=== PATIENT | male | born 1990 ===

== ENCOUNTER → 2023-05-15 10:56 | Outpatient (BNVA) | payer SELFPAY | PROVIDERS: Referring Provider Nurse Practitioner Family; Visit Provider Student in an Organized Health Care Education/Training Program | DX: M65.322 Trigger finger, left index finger; M65.332 Trigger finger, left middle finger | CPT/HCPCS: 73130 ==

== ENCOUNTER 2023-05-22 10:15 | Outpatient (CLI) | payer SELFPAY ==
[2023-05-22 11:12] LABS: Basophils # 0.1 10^3/uL (0.0-0.1); Basophils % 0.9 %; Eosinophils # 0.1 10^3/uL (0.0-0.8); Eosinophils % 2.2 %; Hematocrit 43.7 % (37-53); Lymphocytes # 1.5 10^3/uL (0.8-4.8); Lymphocytes % 22.5 %; Mean Corpuscular HGB Conc 35.2 g/dL (30-55); Mean Corpuscular Volume 90.9 fl (82-101); Mean Platelet Volume 9.6 fL (7.4-10.4); Monocytes # 0.6 10^3/uL (0.2-0.9); Monocytes % 9.4 %; Neutrophils # 4.21 10^3/uL (1.8-7.7); Neutrophils % 64.7 %; Nucleated Red Blood Cells % 0 %; Platelet Count 203 10^3/cmm (157-399); Red Blood Count 4.81 10^6/uL (3.85-5.65); Red Cell Distribution Width 12.8 % (12.1-15.1)
[2023-05-22 11:15] LABS: Erythrocyte Sedimentation Rate < 1 mm/hr (0-10)
[2023-05-22 11:34] LABS: Alanine Aminotransferase 41 U/L (0-41); Albumin Level 4.1 g/dL (3.5-5.2); Alkaline Phosphatase 54 U/L (40-130); Aspartate Amino Transferase 23 U/L (0-40); Blood Urea Nitrogen 11 mg/dL (6-20); C Reactive Protein 4.4 mg/L (0.0-4.9); Calcium 8.9 mg/dL (8.5-10.5); Carbon Dioxide 24 mmol/L (22-29); Chloride 100 mmol/L (98-107); Globulin 2.6 g/dL (1.3-4.6); Glomerular Filtration Rate 129.1 mL/min (90-130); Glucose 83 mg/dL (65-115); Osmolality Calculated 279 mOsm/kg (285-295); Sodium 135 mmol/L (136-145); Total Bilirubin 0.6 mg/dL (0.15-1.2); Total Protein 6.7 g/dL (6.6-8.7); Uric Acid 4.8 mg/dL (3.4-7.0)
[2023-05-22 11:59] LABS: Anion Gap 15.4 (5-19); Potassium 4.4 mmol/L (3.5-5.1)
[2023-05-25 14:15] LABS: Anti-Double Strand DNA AB 1 IU/mL; Jo-1 Antibody <1.0 NEG AI (<1.0 NEG); SS-B/LA IGG <1.0 NEG AI (<1.0 NEG); Scleroderma Ab(Scl-70) Ab <1.0 NEG AI (<1.0 NEG); Ss-A/Ro Igg <1.0 NEG AI (<1.0 NEG)
[2023-05-25 15:03] LABS: Cyclic Citrullinated Peptide <16 UNITS
== END 2023-05-22 10:16 | disposition home or self-care (01) ==
LOC: LAB 10:16
PROVIDERS: Visit Provider Student in an Organized Health Care Education/Training Program
DX: M06.4 Inflammatory polyarthropathy (principal)
CPT/HCPCS: 80053; 84550; 85025; 85651; 86140; 86200; 86225; 86235; 86431